=== PATIENT | male | born 1950 | race Caucasian/White ===

== ENCOUNTER → 2016-07-01 | Outpatient (CLI) | payer MEDICARE, OTHER | LOC: CT 07:47 | DX: R31.29 Other microscopic hematuria (principal); N28.89 Other specified disorders of kidney and ureter; N20.0 Calculus of kidney | CPT/HCPCS: 36415; 82565; 84520; J7050; Q9962 ==

== ENCOUNTER 2020-03-13 12:55 | Emergency (ER) | payer MEDICARE, OTHER ==
[~2020-03-13 12:55] MED LIST: AMITRIPTYLINE100 MG PO; AMLODIPINE BESYL5 MG PO; ATORVASTATIN CA20 MG PO; AUGMENTIN 875-1 EACH PO; BUSPAR 10MG10 MG PO; ESCITALOPRAM OX10 MG PO; FLOMAX 0.4 MG0.4 MG PO; FLONASE 0.05% N16 GM; LEVOTHYROXINE50 MCG PO; LISINOPRIL20 MG PO; MECLIZINE HCL25 MG PO; POTASSIUM CHLO10 ME1 PO; PROTONIX 20 MG20 MG PO; TIZANIDINE HCL2 MG PO
[2020-03-13] MEDS ORDERED: VENTOLIN HFA 66.7 GM INH (19:38)
[2020-03-13] MEDS ORDERED: AEROCHAMBER1 EA XX (19:38)
== END 2020-03-13 19:42 | disposition home or self-care (01) ==
LOC: ER1 12:55
DX: R43.9 Unspecified disturbances of smell and taste (principal); R68.83 Chills (without fever); R06.00 Dyspnea, unspecified; F17.200 Nicotine dependence, unspecified, uncomplicated; Z20.822 Contact with and (suspected) exposure to COVID-19
CPT/HCPCS: 71046; 99285; U0002

== ENCOUNTER 2020-03-15 13:09 | Inpatient (IN) | payer MEDICARE, OTHER ==
[~2020-03-15] VITALS: Ht 182.9 cm; Wt 70.3 kg
[~2020-03-15 13:09] MED LIST changes: +AEROCHAMBER1 EA XX; +VENTOLIN HFA 66.7 GM INH
[2020-03-15 14:23] LABS: BUN/CREATININE RATIO 9 (0-10)
[2020-03-15 14:55] LABS: HEMOGLOBIN 18.8 gm/dl (14.0-17.5); RED BLOOD COUNT 5.75 M/UL (4.20-5.50); WHITE BLOOD COUNT 9.1 K/UL (4.5-11.0)
[2020-03-15] MEDS ORDERED: HYDROXYZINE HCL50 MG PO (19:43)
[2020-03-15] MEDS ORDERED: LEXAPRO TAB 1010 MG PO (19:44)
[2020-03-15] MEDS ORDERED: DRAMAMINE LESS25 MG PO (19:44)
[2020-03-15] MEDS ORDERED: LIPITOR TAB 2020 MG PO (19:46)
[2020-03-15] MEDS ORDERED: VITAMIN D21250 MCG PO (19:46)
[2020-03-16 01:10] LABS: HEMOGLOBIN 15.5 gm/dl (14.0-17.5); RED BLOOD COUNT 4.82 M/UL (4.20-5.50); WHITE BLOOD COUNT 12.7 K/UL (4.5-11.0)
--- NOTE | 2020-03-16 10:16 | NUR ---
PT BP 180/101. HAS BEEN NOTIFIED OF THE BP READING.
--- NOTE | 2020-03-16 14:14 | NUR ---
PT IS EXPERIENCING CHEST PAIN AND A BP OF 180/100. 10 MG IVP HYDRALAZINE WAS GIVEN TWO HOURS AGO FOR THE SAME SITUATION . PT IS IN MILD DISTRESS. TRIED TO CONTACT MD ABOUT THE SITUATION WITH NO SUCCESS. WILL CONTINUE TO TRY.
--- NOTE | 2020-03-16 17:21 | NUR ---
DR. ROCHA ORDERED TO STOP NG SUCTION AT 1000 AM. PT HAS HAD 1 BM AND NO ISSUES WITH NAUSEA OR VOMITING. ORDERED TO GO AHEAD AND PULL NG TUBE.
--- NOTE | 2020-03-16 18:11 | NUR ---
NOTIFIED MD OF CONTINUAL BP RISE WITH HR OF 104.
[2020-03-17 03:50] LABS: HEMOGLOBIN 13.7 gm/dl (14.0-17.5); RED BLOOD COUNT 4.52 M/UL (4.20-5.50)
[2020-03-17 03:56] LABS: WHITE BLOOD COUNT 8.2 K/UL (4.5-11.0)
[2020-03-17 04:09] LABS: BUN/CREATININE RATIO 19 (0-10)
== END 2020-03-17 19:45 | disposition left against medical advice (07) | DRG 389 ==
LOC: ER1 13:09 → ZEROF 16:58 → M/S 16:58
PROVIDERS: Physician Assistant; Physician Assistant Medical; ADMIT Internal Medicine
DX: K56.609 Unspecified intestinal obstruction, unspecified as to partial versus complete obstruction (principal); E87.2 Acidosis; N17.9 Acute kidney failure, unspecified; Z20.822 Contact with and (suspected) exposure to COVID-19; K59.00 Constipation, unspecified; I10 Essential (primary) hypertension; E78.5 Hyperlipidemia, unspecified; F17.210 Nicotine dependence, cigarettes, uncomplicated; F41.9 Anxiety disorder, unspecified
CPT/HCPCS: 36415; 71275; 80048; 80053; 82150; 82550; 82553; 83605; 83690; 83735; 83874; 84484; 85025; 85027; 85610; 85730; 87040; 90471; 93005; 96374; 96375; 96376; 99285; C9113; J0360; J1650; J2250; J2270; J2405; Q9967

== ENCOUNTER → 2021-08-07 | Outpatient (CLI) | payer OTHER ==
[~2021-08-07] MED LIST changes: +DRAMAMINE LESS25 MG PO; +HYDROXYZINE HCL50 MG PO; +LEXAPRO TAB 1010 MG PO; +LIPITOR TAB 2020 MG PO; +VITAMIN D21250 MCG PO
== END ==
LOC: RAD 09:10
DX: M25.511 Pain in right shoulder (principal); M47.812 Spondylosis without myelopathy or radiculopathy, cervical region
CPT/HCPCS: 72050; 73030

== ENCOUNTER → 2021-10-11 | Outpatient (CLI) | payer OTHER | LOC: KOH-I 14:02 | DX: M79.671 Pain in right foot (principal) | CPT/HCPCS: 73630 ==